=== PATIENT | female | born 1955 | race Hispanic/Latino ===

== ENCOUNTER → 2025-03-28 | Outpatient (REF) | payer MEDICARE ==
[~2025-03-28] MED LIST: AMLODIPINE BESYL5 MG PO; ASPIRIN81 MG PO; GLUCOTROL XL10 MG PO; HYDROCHLOROTHIA25 MG PO; LIPITOR10 MG PO; LOSARTAN POTAS100 MG PO; METFORMIN HCL1000 MG PO; PLAVIX75 MG PO; TOUJEO SOL300 UNIT/1 SC
== END ==
LOC: US 13:21
PROVIDERS: ATTEND Nurse Practitioner Family
DX: Z80.8 Family history of malignant neoplasm of other organs or systems (principal)
CPT/HCPCS: 76536